=== PATIENT | female | born 1950 | race Caucasian/White ===

== ENCOUNTER 2019-03-13 18:53 | Observation (INO) ==
[2019-03-13] MEDS ORDERED: EPINEPHrine 1 MG/ML VIAL SQ ONE (19:09)
[2019-03-13] MEDS ORDERED: methylPREDNISolone 125 MG/2 ML VIAL IVP ONE (19:10)
[2019-03-13] MEDS ORDERED: Famotidine 20 MG/2 ML VIAL IVP ONE (19:10)
[2019-03-13] MEDS ORDERED: EPINEPHrine 1 MG/ML VIAL ONE (19:13)
[2019-03-13] MEDS ORDERED: Morphine Sulfate 2 MG/ML SYRINGE IVP ONE (20:16)
[2019-03-13] MEDS ORDERED: Ondansetron 4 MG/2 ML VIAL IVP ONE (20:16)
[2019-03-13 23:32] LABS: Basophils % 0.2 %; Hematocrit 44.6 % (35.3-44.9); Hemoglobin 14.4 g/dL (11.5-15.4); Immature Granulocytes % 0.6 % (0-4); Lymphocytes # 0.6 K/mcL (0.6-4.6); Lymphocytes % 3.5 %; Mean Corpuscular HGB Conc 32.3 g/dL (31.6-35.5); Mean Corpuscular Hemoglobin 29.5 pg (28.0-33.3); Mean Platelet Volume 9.7 fL (9.4-12.4); Monocytes # 0.1 K/mcL (0.0-1.3); Monocytes % 0.7 %; Neutrophils # 17.2 K/mcL (1.6-8.9); Platelet Count 294 K/mcL (140-400); Red Blood Count 4.88 M/mcL (3.82-4.97); Red Cell Distribution Width 13.9 % (11.5-14.5); White Blood Count 18.1 K/mcL (4.3-11.1)
[2019-03-13 23:33] LABS: Mean Corpuscular Volume 91.4 fL (83.0-100.0)
[2019-03-13 23:51] LABS: Calcium 9.1 mg/dL (8.6-10.3); Potassium 4.2 mEq/L (3.5-5.1)
[2019-03-14] MEDS ORDERED: *HR* OxyCODONE/APAP 5/325 TABLET PO PRN (01:25)
[2019-03-14] MEDS ORDERED: traMADol 50 MG TABLET PO PRN (01:25)
[2019-03-14] MEDS ORDERED: Baclofen 10 MG TABLET PO PRN (01:25)
[2019-03-14] MEDS ORDERED: Acetaminophen 325 MG TABLET PO PRN (01:25)
[2019-03-14] MEDS ORDERED: Naloxone 0.4 MG/ML INJ IVP PRN (01:27)
[2019-03-14] MEDS: Melatonin 3 MG TABLET PO SCH ×2 (02:24→20:07)
[2019-03-14] MEDS: Gabapentin 300 MG CAPSULE PO SCH ×4 (02:25→20:07)
[2019-03-14 02:56] LABS: Basophils % 0.2 %; Hematocrit 45.3 % (35.3-44.9); Hemoglobin 14.7 g/dL (11.5-15.4); Immature Granulocytes % 0.4 % (0-4); Lymphocytes # 0.8 K/mcL (0.6-4.6); Lymphocytes % 6.8 %; Mean Corpuscular HGB Conc 32.5 g/dL (31.6-35.5); Mean Corpuscular Hemoglobin 30.1 pg (28.0-33.3); Mean Corpuscular Volume 92.8 fL (83.0-100.0); Mean Platelet Volume 10.1 fL (9.4-12.4); Monocytes # 0.1 K/mcL (0.0-1.3); Monocytes % 0.4 %; Neutrophils # 11.3 K/mcL (1.6-8.9); Platelet Count 296 K/mcL (140-400); Red Blood Count 4.88 M/mcL (3.82-4.97); Segmented Neutrophils % 92.2 %; White Blood Count 12.2 K/mcL (4.3-11.1)
[2019-03-14 03:04] LABS: INR 0.9; Prothrombin Time 10.2 Seconds (9.4-12.1)
[2019-03-14 03:17] LABS: Albumin 4.2 g/dL (3.5-5.7); Albumin/Globulin Ratio 1.4 (1.1-2.2); Bilirubin,Total 0.3 mg/dL (0.3-1.0); Calcium 9.6 mg/dL (8.6-10.3); Chol/HDL Ratio 2.9 (0-4.9); Globulin 2.9 g/dL (2.4-3.5); Magnesium 2.2 mg/dL (1.6-2.6); Phosphorous 2.6 mg/dL (2.7-4.5); Potassium 4.3 mEq/L (3.5-5.1); Total Protein 7.1 g/dL (6.4-8.9)
[2019-03-14 03:30] LABS: Thyroid Stimulating Hormone 0.601 mcIU/mL (0.340-5.600)
[2019-03-14 03:32] LABS: Bilirubin,Urine Negative (Negative); Blood,Urine Trace (Negative); Clarity,Urine Cloudy (Clear); Color,Urine Yellow (Yellow); Glucose,Urine (UA) Normal (Normal); Ketones,Urine Trace mg/dL (Negative); Leukocyte Esterase,Urine Small (Negative); Nitrite,Urine Negative (Negative); Protein,Urine Negative (Neg-Trace); Specific Gravity,Urine 1.017 (1.010-1.025); Urobilinogen,Urine Normal (Normal)
[2019-03-14 03:34] LABS: Bacteria,Urine None Seen per hpf (None-Few); Hyaline Casts,Urine None Seen per lpf (None-Few); RBC,Urine 0-3 per hpf (0-3); Squamous Epithelial Cell,Urine Moderate per lpf (None-Few)
[2019-03-14] MEDS ORDERED: Artificial Tears SOLN 15 ML BOTTLE BOTH EYES PRN (04:04)
[2019-03-14 08:18] LABS: Estimated Average Glucose 137 mg/dl
[2019-03-14] MEDS: *HR* Heparin 5,000 UNIT/ML VIAL SQ SCH ×3 (09:48→21:59)
[2019-03-14] MEDS: Folic Acid 1 MG TABLET PO SCH (09:48)
[2019-03-14] MEDS ORDERED: MOM Conc 10 ML UD.LIQ PO PRN (09:57)
[2019-03-14] MEDS ORDERED: Sennosides/Docusate Sodium TABLET PO PRN (09:57)
[2019-03-14] MEDS ORDERED: 0.9 % Sodium Chloride 1,000 ML IVC SCH (10:00)
[2019-03-15 04:02] LABS: Basophils # 0.1 K/mcL (0.0-0.2); Basophils % 0.4 %; Eosinophils # 0.1 K/mcL (0.0-0.6); Eosinophils % 0.6 %; Hematocrit 34.2 % (35.3-44.9); Immature Granulocytes % 0.4 % (0-4); Immature Platelets 2.2 % (1.1-6.1); Lymphocytes % 21.7 %; Mean Corpuscular HGB Conc 32.2 g/dL (31.6-35.5); Mean Corpuscular Hemoglobin 30.2 pg (28.0-33.3); Monocytes % 6.9 %; Neutrophils # 9.8 K/mcL (1.6-8.9); Platelet Count 236 K/mcL (140-400); Red Blood Count 3.64 M/mcL (3.82-4.97); Red Cell Distribution Width 14.6 % (11.5-14.5)
[2019-03-15 04:12] LABS: Alanine Aminotransferase 7 Units/L (7-52); Albumin 3.5 g/dL (3.5-5.7); Albumin/Globulin Ratio 1.5 (1.1-2.2); Alkaline Phosphatase 55 Units/L (34-104); Aspartate Amino Transferase 15 Units/L (13-39); BUN/Creatinine Ratio 24 (6-26); Bilirubin,Total 0.2 mg/dL (0.3-1.0); Blood Urea Nitrogen 24 mg/dL (8-23); Carbon Dioxide 28 mEq/L (23-29); Chloride 110 mEq/L (98-107); Globulin 2.3 g/dL (2.4-3.5); Glucose 103 mg/dL (70-105); Osmolality,Calculated 298 (280-300); Potassium 3.8 mEq/L (3.5-5.1); Sodium 142 mEq/L (136-145); Total Protein 5.8 g/dL (6.4-8.9); eGFR For African Americans > 60 (> 60); eGFR For Non-African Americans 55 (> 60)
[2019-03-15] MEDS: *HR* Heparin 5,000 UNIT/ML VIAL SQ SCH (05:05)
[2019-03-15 07:51] VITALS: BP 134/82
[2019-03-15] MEDS ORDERED: Cholecalciferol (D-3) 1,000 UNIT (25MCG) TABLET PO SCH (09:00)
[2019-03-15] MEDS: Folic Acid 1 MG TABLET PO SCH (10:25)
[2019-03-15] MEDS: Gabapentin 300 MG CAPSULE PO SCH (10:25)
== END 2019-03-15 12:33 | disposition home or self-care (01) ==
LOC: 2NENU 18:53 → EMEROOARM 18:53 → SUATTDRO 03-14 00:13 → 2NENU 03-14 00:32
PROVIDERS: ADMIT Family Medicine; ATTEND Internal Medicine

== ENCOUNTER 2019-08-17 20:06 | Observation (INO) ==
[2019-08-17] MEDS ORDERED: 0.9 % Sodium Chloride 1,000 ML IVC ONE (20:48)
[2019-08-17 21:07] LABS: Basophils % 0.5 %; Eosinophils # 0.1 K/mcL (0.0-0.6); Eosinophils % 1.5 %; Hematocrit 39.8 % (35.3-44.9); Hemoglobin 12.9 g/dL (11.5-15.4); Immature Granulocytes % 0.3 % (0-4); Lymphocytes % 22.3 %; Mean Corpuscular HGB Conc 32.4 g/dL (31.6-35.5); Mean Corpuscular Hemoglobin 31.2 pg (28.0-33.3); Mean Corpuscular Volume 96.1 fL (83.0-100.0); Mean Platelet Volume 9.5 fL (9.4-12.4); Monocytes # 0.4 K/mcL (0.0-1.3); Neutrophils # 6.2 K/mcL (1.6-8.9); Platelet Count 279 K/mcL (140-400); Red Blood Count 4.14 M/mcL (3.82-4.97); Red Cell Distribution Width 13.7 % (11.5-14.5); Segmented Neutrophils % 70.4 %; White Blood Count 8.7 K/mcL (4.3-11.1)
[2019-08-17 21:17] LABS: Amphetamine Screen,Urine Negative ng/mL (Cutoff=1000); Barbiturate Screen,Urine Negative ng/mL (Cutoff=200); Benzodiazepines Screen,Urine Negative ng/mL (Cutoff=200); Cannabinoid Screen,Urine Negative ng/mL (Cutoff = 50); Cocaine Screen,Urine Negative ng/mL (Cutoff= 300); Opiate Screen,Urine Negative ng/mL (Cutoff=300); Phencyclidine Screen,Urine Negative ng/mL (Cutoff=25)
[2019-08-17 21:30] LABS: Acetaminophen < 10 mcg/mL (10-20); Alanine Aminotransferase 13 Units/L (7-52); Albumin 4.2 g/dL (3.5-5.7); Albumin/Globulin Ratio 1.6 (1.1-2.2); Alkaline Phosphatase 49 Units/L (34-104); Aspartate Amino Transferase 20 Units/L (13-39); BUN/Creatinine Ratio 18 (6-26); Bilirubin,Direct 0.1 mg/dL (0.0-0.2); Bilirubin,Indirect 0.2 mg/dL (0.0-1.0); Bilirubin,Total 0.3 mg/dL (0.3-1.0); Blood Urea Nitrogen 18 mg/dL (8-23); Calcium 9.4 mg/dL (8.6-10.3); Carbon Dioxide 29 mEq/L (23-29); Chloride 108 mEq/L (98-107); Ethanol < 10 mg/dL (Less than 10); Globulin 2.6 g/dL (2.4-3.5); Glucose 110 mg/dL (70-105); Osmolality,Calculated 297 (280-300); Potassium 4.2 mEq/L (3.5-5.1); Salicylate < 2.5 mg/dL (15.0-30.0); Sodium 142 mEq/L (136-145); Total Protein 6.8 g/dL (6.4-8.9); Troponin I < 0.03 ng/mL (< 0.04); eGFR For African Americans > 60 (> 60); eGFR For Non-African Americans 55 (> 60)
[2019-08-17 21:44] LABS: Thyroid Stimulating Hormone 1.543 mcIU/mL (0.340-5.600)
[2019-08-17 22:37] LABS: Color,Urine Yellow (Yellow)
[2019-08-17 22:38] LABS: Bilirubin,Urine Negative (Negative); Clarity,Urine Slightly Cloudy (Clear); Glucose,Urine (UA) Normal (Normal); Ketones,Urine Negative (Negative)
[2019-08-17 22:39] LABS: Blood,Urine Negative (Negative); Leukocyte Esterase,Urine Negative (Negative); Nitrite,Urine Negative (Negative); PH,Urine 7.5 pH Units (5.0-8.0); Protein,Urine Negative (Neg-Trace); Specific Gravity,Urine 1.021 (1.010-1.025); Urobilinogen,Urine Normal (Normal)
[2019-08-17 22:44] LABS: Squamous Epithelial Cell,Urine Few per lpf (None-Few)
[2019-08-17 22:45] LABS: Bacteria,Urine Moderate per hpf (None-Few); WBC,Urine 0-3 per hpf (0-3)
[2019-08-17] MEDS ORDERED: Naloxone 0.4 MG/ML INJ IVP PRN (23:50)
[2019-08-18] MEDS ORDERED: Acetaminophen 325 MG TABLET PO ONE (01:15)
[2019-08-18 02:48] LABS: Basophils # 0.1 K/mcL (0.0-0.2); Basophils % 0.7 %; Eosinophils # 0.2 K/mcL (0.0-0.6); Eosinophils % 1.8 %; Hematocrit 36.1 % (35.3-44.9); Immature Granulocytes % 0.2 % (0-4); Lymphocytes # 2.6 K/mcL (0.6-4.6); Lymphocytes % 30.3 %; Mean Corpuscular HGB Conc 33.2 g/dL (31.6-35.5); Mean Corpuscular Hemoglobin 32.1 pg (28.0-33.3); Mean Corpuscular Volume 96.5 fL (83.0-100.0); Mean Platelet Volume 9.6 fL (9.4-12.4); Monocytes # 0.6 K/mcL (0.0-1.3); Monocytes % 6.8 %; Neutrophils # 5.1 K/mcL (1.6-8.9); Platelet Count 264 K/mcL (140-400); Red Blood Count 3.74 M/mcL (3.82-4.97); Red Cell Distribution Width 13.4 % (11.5-14.5); Segmented Neutrophils % 60.2 %; White Blood Count 8.5 K/mcL (4.3-11.1)
[2019-08-18 03:06] LABS: BUN/Creatinine Ratio 17 (6-26); Blood Urea Nitrogen 16 mg/dL (8-23); Carbon Dioxide 24 mEq/L (23-29); Chloride 113 mEq/L (98-107); Glucose 104 mg/dL (70-105); Osmolality,Calculated 291 (280-300); Potassium 3.4 mEq/L (3.5-5.1); Sodium 140 mEq/L (136-145); eGFR For African Americans > 60 (> 60); eGFR For Non-African Americans > 60 (> 60)
[2019-08-18] MEDS ORDERED: SUMAtriptan 6 MG/0.5 ML SQ ONE (09:28)
[2019-08-18] MEDS ORDERED: *HR* Promethazine 25 MG/ML VIAL IVP ONE (09:28)
[2019-08-18 10:47] VITALS: BP 158/80
== END 2019-08-18 12:55 | disposition home or self-care (01) ==
LOC: EMEROOARM 20:06 → 3BNU 20:06 → SUATTDRO 23:26 → 3BNU 08-18 00:02
PROVIDERS: ADMIT Internal Medicine; ATTEND Internal Medicine